=== PATIENT | female | born 1970 | race Two or more races ===

== ENCOUNTER 2016-05-10 17:39 | Emergency (ER) | payer OTHER ==
[~2016-05-10] VITALS: Ht 160 cm; Wt 65.0 kg
[~2016-05-10 17:39] MED LIST: CEPH500C PO; FER325 PO; MEDR10TA2 PO
[2016-05-10 17:42] VITALS: Ht 160 cm; Wt 65.0 kg
[2016-05-10 19:21] LABS: ADD UMIC YES; URINE BILIRUBIN (Dip) NEGATIVE (NEGATIVE); URINE BLOOD (Dip) NEGATIVE (NEGATIVE); URINE COLOR LT. YELLOW (YELLOW); URINE GLUCOSE (Dip) NEGATIVE (NEGATIVE); URINE KETONES (Dip) NEGATIVE (NEGATIVE); URINE LEUKOCYTE ESTERASE (Dip) 1+ (NEGATIVE); URINE NITRITE (Dip) NEGATIVE (NEGATIVE); URINE TOTAL PROTEIN (Dip) NEGATIVE (NEGATIVE); URINE UROBILINOGEN (Dip) 0.2 E.U./dL (0.1-1.0)
[2016-05-10] MEDS ORDERED: CEPH500C PO (19:35)
[2016-05-10] MEDS ORDERED: FLUC200T52 PO (19:35)
[2016-05-10 19:44] LABS: BACTERIA,URINE FEW; URINE RBCS 0-2 /HPF (0)
[2016-05-10 19:56] VITALS: BP 124/76; PULSE 100; RESP 16; TEMP 98.6
--- NOTE | 2016-06-21 13:54 | ERD ---
ER Documentation Chief Complaint Date/Time DATE: 05/10/2016 TIME: 13:52 Chief Complaint PAINFUL URINATION AND SWELLING AROUND GENITALIA X 2 WEEKS HPI 46-year-old woman presents with dysuria 2 weeks as well as itchy rash to the external genitalia. She suspects urinary tract infection, denies weight loss, no fevers or chills, no vaginal discharge. Patient denies recent unprotected sexual intercourse, denies back pain, no chest pain or shortness of breath, no vomiting or diarrhea. ROS All systems reviewed and are negative except as per history of present illness. Medications Home Meds Active Scripts Cephalexin* (Cephalexin*) 500 Mg Capsule, 500 MG PO Q8, #21 CAP Prov:DANAY DENNIS MD 05/10/16 Fluconazole* (Fluconazole*) 200 Mg Tablet, 200 MG PO DAILY, #1 TAB Prov:DANAY DENNIS MD 05/10/16 Cephalexin* (Cephalexin*) 500 Mg Capsule, 500 MG PO QID, #7 CAP Prov:KALIN FISH PA-C 04/19/15 Medroxyprogesterone Acetate* (Provera*) 10 Mg Tablet, 10 MG PO DAILY, #5 TAB Prov:KALIN FISH PA-C 04/19/15 Ferrous Sulfate* (Ferrous Sulfate*) 325 Mg Tabec, 325 MG PO BID, #30 TAB Prov:KALIN FISH PA-C 04/19/15 Allergies Allergies: Coded Allergies: No Known Allergy (Unverified , 04/19/15) PMhx/Soc None Medical and Surgical Hx: pt denies Medical Hx History of Surgery: Yes (REMOVAL OF FIBROMAS, KIDNEY STONES) Anesthesia Reaction: No Hx Neurological Disorder: No Hx Respiratory Disorders: No Hx Cardiac Disorders: No Hx Psychiatric Problems: No Hx Miscellaneous Medical Probl: No Hx Alcohol Use: No Hx Substance Use: No Hx Tobacco Use: No Smoking Status: Never smoker FmHx Family History: No diabetes Physical Exam Vitals Per nursing notes which I reviewed Physical Exam GENERAL: Well-developed, well-nourished, well-hydrated, in no apparent distress , looks nontoxic in appearance HEENT: Moist mucous membranes, pink conjunctiva, no cervical spine tenderness or step-off deformities, no goiter, no jaundice or icterus, extraocular movements intact without pain. No submandibular induration, and no pharyngeal erythema NEURO: Alert and oriented 3, cranial nerves II through XII intact bilaterally, pupils equal round reactive to light, no focal deficits or facial asymmetry, sensation intact distally Strength 5/5 in upper and lower extremities bilaterally CARDIAC: Regular rate and rhythm, no murmurs rubs or gallops LUNGS: Clear bilaterally no wheezing crackles or stridor ABDOMEN: Soft nontender, no guarding, no rigidity, no rebound, no psoas sign no obturator sign. Normoactive bowel sounds SKIN: Warm and dry to touch, no abrasions, contusions, or hematomas, no lacerations, no ecchymosis, no target lesions, and without ulcers EXTREMITIES: No clubbing cyanosis or edema, calves are bilaterally symmetrical, no Homans sign, no popliteal cord sign. Distal pulses equal and bilateral PSYCH: Normal affect without agitation or irritability Results 24 hrs Laboratory Tests Test 05/10/16 18:49 Urine Color LT. YELLOW Urine Clarity CLEAR Urine pH 5.5 Urine Specific [place] 1.020 Urine Ketones NEGATIVE Urine Nitrite NEGATIVE Urine Bilirubin NEGATIVE Urine Urobilinogen 0.2 E.U./dL Urine Leukocyte Esterase 1+ Urine Microscopic RBC 0-2/HPF Urine Microscopic WBC 2-5/HPF Urine Epithelial Cells FEW Urine Bacteria FEW Urine Hemoglobin NEGATIVE Urine Glucose NEGATIVE% Urine Total Protein NEGATIVE Procedures/MDM test was negative, urine analysis was concerning for infection especially in light of her symptoms. She has had a UTI in the past and suspects the same today. I will be treating her as an outpatient with oral antibiotics as well as fluconazole to use after antibiotics are complete. Differential diagnoses considered, included but not limited to acute coronary syndrome, pulmonary embolism, aortic dissection, abdominal aortic aneurysm, sepsis, stroke, meningitis, encephalitis, pneumonia, appendicitis, cholecystitis , bowel obstruction, pyelonephritis, nephrolithiasis, cystitis, as well as metabolic, hematologic, and electrolyte abnormalities. As well as abscess, cellulitis, fractures, and dislocations. Patient feels much better at this time, and vital signs are normal, symptoms have improved. I did give strict instructions to return to the ED if symptoms continue or worsen, patient will otherwise follow-up with primary care physician. Patient understood instructions and agreed to plan. Departure Diagnosis: Primary Impression: UTI (urinary tract infection) Urinary tract infection type: acute cystitis Hematuria presence: without hematuria Qualified Code: N30.00 - Acute cystitis without hematuria Condition: Good Patient Instructions: Bladder Infection, Female (Adult) DANAY DENNIS MD June 21, 2016 13:53
== END 2016-05-10 20:00 | disposition home or self-care (01) ==
LOC: FTE 17:39
DX: N30.00 Acute cystitis without hematuria (principal)
CPT/HCPCS: 81001; 81003; 99283

== ENCOUNTER 2016-12-06 22:41 | Emergency (ER) | payer SELFPAY ==
[~2016-12-06] VITALS: Ht 157.5 cm; Wt 63.2 kg
[~2016-12-06 22:41] MED LIST changes: +FLUC200T52 PO
[2016-12-06 23:20] VITALS: Ht 157.5 cm; Wt 63.2 kg
== END 2016-12-07 03:06 | disposition left against medical advice (07) ==
LOC: E/R 22:41
DX: Z53.21 Procedure and treatment not carried out due to patient leaving prior to being seen by health care provider (principal)